=== PATIENT | female | born 1975 | race Caucasian/White ===

== ENCOUNTER → 2021-09-27 | Outpatient (CLI) | payer BC, OTHER ==
[~2021-09-27] MED LIST: ACETAMINOPHEN 500 MG TAB (TYLENOL) PO PRN; BAMLANIVIMAB 700 MG/ETESEVIMAB 1,400 MG IN NS IV ONE; EPINEPHrine INJECTION 1 MG/ML AMP IM PRN; ONDANSETRON 4 MG/2 ML (SDV) Z0FRAN IV PRN; diphenhydrAMINE 50 MG/ML INJ (BENADRYL) IV PRN
[2021-09-27 10:36] VITALS: BP 100/65
[2021-09-27 11:53] VITALS: BP 135/62
== END ==
LOC: INFUSION 10:28
PROVIDERS: ATTEND Family Medicine
DX: U07.1 COVID-19 (principal)